=== PATIENT | female | born 1960 | race Caucasian/White ===

== ENCOUNTER 2017-12-17 21:05 | Inpatient (IN) | payer OTHER, SELFPAY ==
[2017-12-17] MEDS ORDERED: Mag-Al 1200 mg/1200 mg/30 ML UDCUP ONE (21:48)
[2017-12-17] MEDS ORDERED: Lidocaine Viscous Sol 2% 15 ml UD Cup ONE (21:48)
[2017-12-17 21:52] LABS: Bilirubin Negative (Negative); Blood, Urine Negative (Negative); Clarity CLEAR (Clear); Glucose, Urine (Dipstick) Negative (Negative); Leukocyte Trace (Negative); Nitrite Negative (Negative); Protein, Urine (Dipstick) 30 mg/dL (Neg-Trace); Specific Gravity, Urine 1.013 (1.002-1.036); pH, Urine 6.5 (5.0-9.0)
[2017-12-17 21:53] LABS: Bacteria/HPF None Seen HPF (None Seen); Hyaline Casts/LPF 0-3 HYALINE CAST LPF (0-3 Hyaline); Squamous Epithelial 0-3 HPF (0-3); WBC/HPF 0-3 HPF (0-3)
[2017-12-17 21:58] LABS: #Basophils 0.1 thou/uL (0.0-0.2); #Eosinphils 0.7 thou/uL (0.0-0.7); #Lymphocytes 2.7 thou/uL (1.20-3.40); #Monocytes 1.2 thou/uL (0.11-0.59); #Neutrophils 6.7 thou/uL (1.40-6.50); %Basophils 0.7 % (0.0-1.0); %Eosinophils 5.9 % (0.0-10.0); %Lymphocytes 23.7 % (21.0-51.0); %Monocytes 10.8 % (0.0-10.0); %Neutrophils 58.9 % (42.0-75.0); Hemoglobin 12.3 g/dL (12.0-16.0); Mean Corpuscular Hemoglobin 30.8 pg (27.0-31.0); Mean Corpuscular Volume 93.4 fL (78.0-98.0); Mean Platelet Volume 7.2 fL (7.4-10.4); Platelet Count 330 thou/uL (130-400); RBC Distribution Width 12.3 % (11.5-14.5); Red Blood Cell (RBC) Count 3.99 mill/uL (4.20-5.40); White Blood Cell (WBC) Count 11.4 thou/uL (4.8-10.8)
[2017-12-17 22:18] LABS: ALT (SGPT) 77 U/L (8-55); AST (SGOT) 162 U/L (5-34); Albumin 3.9 g/dL (3.5-5.0); Alkaline Phosphatase 129 U/L (40-150); Anion Gap 12 mmol/L (10-20); BUN (Urea Nitrogen) 15 mg/dL (9.8-20.1); Bilirubin, Total 0.8 mg/dL (0.2-1.2); Calc. Creatinine Clearance 0 mL/min (70-130); Calcium 9.4 mg/dL (7.8-10.44); Carbon Dioxide 25 mmol/L (22-29); Chloride 103 mmol/L (98-107); Estimated GFR-MDRD 58; Globulin 3.6 g/dL (2.4-3.5); Glucose 93 mg/dL (70-105); Lipase 422 U/L (8-78); Protein, Total 7.5 g/dL (6.0-8.3); Sodium 136 mmol/L (136-145)
[2017-12-17] MEDS ORDERED: Morphine 2 MG/ML SYRINGE ONE (22:40)
--- NOTE | 2017-12-17 22:46 | ULT ---
RIGHT UPPER QUADRANT ULTRASOUND: 12/17/17 INDICATION: Epigastric abdominal pain radiating to the right flank with nausea. FINDINGS: There is numerous stones within the gallbladder. There is report of a positive sonographic Rosales's s ign. No gallbladder wall thickening or pericholecystic fluid is evident. There is fatty infiltration of the liver. The pancreas is largely obscured. The right kidney measures 10.3 cm in length. No focal renal lesions or hydronephrosis is evident. IMPRESSION: 1. Cholelithiasis with report of a sonographic Rosales's sign; however, there is no pericholecyst ic fluid or gallbladder wall thickening demonstrated. Findings are equivocal by sonography for acute calculus cholecystitis. If clinically indicated, followup HIDA scan may be helpful. 2. Fatty liver. POS: [facility]
[2017-12-17] MEDS ORDERED: metroNIDAZOLE 500 MG/100 ML BAG ONE (23:15)
[2017-12-18] MEDS ORDERED: Morphine 2 MG/ML SYRINGE SLOW IVP PRN (00:33)
[2017-12-18 00:45] VITALS: BMI 37.4
[2017-12-18] MEDS: Lactated Ringer's 1,000 ML IV SCH ×2 (01:31→07:58)
[2017-12-18] MEDS ORDERED: Ondansetron PF 4 MG/2 ML Vial IVP PRN (06:02)
[2017-12-18] MEDS: Acetaminophen 1,000 MG in Premix Bag 1 BAG IVPB PRN (06:15)
[2017-12-18] MEDS ORDERED: Scopolamine 1.5 mg/72 hour Patch TOP SCH (06:30)
[2017-12-18] MEDS ORDERED: metroNIDAZOLE 500 MG in Premix Bag 1 BAG IVPB SCH (08:00)
--- NOTE | 2017-12-18 08:03 | HP ---
HISTORY OF PRESENT ILLNESS: Ms. Tammie Nguyen is a 57-year-old female who has had intermittent right u pper quadrant epigastric pain for several months. She was prescribed ranitidine. She reports having an ultrasound and it is difficult from her history to tell whether there is any abnormality at that time, although it sounds like that there was, she is not able to tell me; however, whether she had st ones or not, but they did treat her with ranitidine. She [facility] and has had right upper quadrant pain. Ultrasound is positive for sonographic Rosales sign. The re has been no mention of biliary dilatation, although her lipase was slightly elevated. Her bilirub in, alkaline phosphatase was normal, although AST and ALT were slightly elevated. She is morbidly ob lionel and does have a fatty liver. Plan at this time is for a laparoscopic video cholecystectomy and c holangiogram, so I think the risk of choledocholithiasis is very small. ALLERGIES: PENICILLIN. TOBACCO: None. ALCOHOL: None. MEDICATIONS: Ranitidine 150 mg at bedtime, multivitamins daily, metoprolol 25 mg daily, lisinopril 2 5 mg daily, aspirin 81 mg daily. PAST SURGICAL HISTORY: Noncontributory. PAST MEDICAL HISTORY: Hypertension. REVIEW OF SYSTEMS: [place] noncontributory. She reports a negative cardiac stress test years ago. She is asymptomatic from a cardiac standpoint without cardiac symptomatology. PHYSICAL EXAMINATION: GENERAL: 5 foot 4 inches, 218 pounds, 37 BMI. VITAL SIGNS: 98.2, 72, 20, 165/95. HEENT: Unremarkable. LUNGS: Clear to auscultation. CARDIAC: Regular rate and rhythm without murmur or gallop. ABDOMEN: Soft, obese. Tenderness in right upper quadrant with positive Rosales sign. EXTREMITIES: No ankle edema, palpable pedal pulses. SKIN: Nonjaundiced. Sclerae nonicterus. LABORATORY DATA: Sodium 136, potassium 4.0, BUN 15, creatinine 0.98, GFR 58, bilirubin 0.8, AST 162, ALT 177, alkaline phosphatase normal at 129, lipase 422. Her white count is 11, hemoglobin 12. ASSESSMENT AND PLAN: Acute cholecystitis and cholelithiasis. We recommend laparoscopic video cholec ystectomy and cholangiogram. Risk of infection, bleeding, visceral and biliary injury were discussed , she consents. Questions were answered.
[2017-12-18] MEDS: Ketorolac Tromethamine 30 MG/ML VIAL IVP PRN (09:24)
[2017-12-18] MEDS ORDERED: Glycopyrrolate 0.2 MG/ML 5 ML SYRINGE ONE (11:32)
[2017-12-18] MEDS ORDERED: Metoprolol Tartrate 5 MG/5 ML VIAL ONE (11:32)
[2017-12-18] MEDS ORDERED: Ketorolac Tromethamine 30 MG/ML VIAL ONE (11:32)
[2017-12-18] MEDS ORDERED: Dexamethasone 20 MG/5 ML VIAL ONE (11:32)
[2017-12-18] MEDS ORDERED: PROPOFOL 200 MG/20 ML VIAL ONE (11:32)
[2017-12-18] MEDS ORDERED: Succinylcholine Chloride 20 MG/ML 10 ml SYRINGE FS ONE (11:32)
[2017-12-18] MEDS ORDERED: Ondansetron PF 4 MG/2 ML Vial ONE (11:32)
[2017-12-18] MEDS ORDERED: Fentanyl 100 MCG/2 ML VIAL ONE (12:33)
[2017-12-18] MEDS ORDERED: Bupivacaine HCl 0.5%/Epinephrine 1:200,000/PF 30 ml Vial ONE (12:33)
[2017-12-18] MEDS ORDERED: Iothalamate Meglumine 60% 50 ML VIAL FS ONE (12:33)
[2017-12-18] MEDS ORDERED: Levofloxacin 500 mg/D5W 100 ml Premix Bag ONE (12:49)
[2017-12-18] MEDS ORDERED: Promethazine HCl 25 MG/ML VIAL IM PRN (13:55)
[2017-12-18] MEDS ORDERED: Ondansetron HCl/PF 4 MG/2 ML Vial IVP PRN (13:55)
[2017-12-18] MEDS ORDERED: Promethazine HCl 25 MG/ML VIAL SLOW IVP PRN (13:55)
[2017-12-18] MEDS ORDERED: traMADol HCl 50 MG TAB PO PRN ×2 (14:15)
[2017-12-18] MEDS ORDERED: Acetaminophen 500 MG TAB PO PRN (14:15)
[2017-12-18] MEDS ORDERED: Ibuprofen 600 MG TAB PO PRN (14:15)
[2017-12-18] MEDS ORDERED: Ondansetron ODT 4 MG TAB PO PRN (14:20)
[2017-12-18] MEDS ORDERED: Ondansetron ODT 8 MG TAB PO PRN (14:20)
--- NOTE | 2017-12-18 15:09 | RAD ---
INTRAOPERATIVE CHOLANGIOGRAM FLUOROSCOPY: Date: 12/18/17 HISTORY: Cholecystitis. FINDINGS/IMPRESSION: Intraoperative fluoroscopy was provided for cholangiogram as performed by Dr. Davey. Spot fluoroscop ic images show contrast opacification of a nondilated biliary system. Contrast extends into the duode num. Fluoro Time: 11 seconds. POS: [facility]
--- NOTE | 2017-12-18 15:53 | OP ---
PREOPERATIVE DIAGNOSES: Chronic cholecystitis, cholelithiasis, elevated transaminases. Normal bilir ubin, alkaline phosphatase, nondilated bile duct, and minimally elevated lipase. POSTOPERATIVE DIAGNOSES: Chronic cholecystitis, cholelithiasis, choledocholithiasis. PROCEDURE: Laparoscopic video cholecystectomy, positive cholangiogram. FINDINGS: Nondilated bile duct without obvious filling defects, but distal bile duct had a meniscus and did not empty into the duodenum despite glucagon administration. SURGEON: Oumar Davey M.D. ANESTHESIA: General. Local 0.5% Marcaine with epinephrine. PLAN: Consult Dr. Phillip Lee for ERCP, Thursday, tomorrow. PROCEDURE IN DETAIL: Patient was taken to the operating room where under general anesthesia, abdomen was prepared with ChloraPrep, draped in usual fashion. Local anesthetic infiltrated into the skin a nd subcutaneous tissue about the operative sites. Infraumbilical incision made. Pneumoperitoneum to 15 mmHg obtained with a Veress needle, replacing it with a 5 port and laparoscope inserted. Right s ubxiphoid incision made and 11 port placed. Right subcostal incision made in mid clavicular anterior axillary lines and 5 ports placed. Liver appeared to be normal. Fundus of gallbladder grasped at t he cephalad dissected laterally. There was abundant fatty tissue. Cystic artery and duct diss ected free. Cystic artery double clipped proximally, divided. Cystic duct dissected free and a clip was placed. An opening was made in the cystic duct and contents milked retrograde. Cholangio cath inserted and cholangiogram was obtained using fluoroscopy revealing a failure of the nondilated bile duct that empty into the duodenum despite glucagon administration by Anesthesia. Repeat cholang iograms obtained. Still, there was no emptying. There seemed to be a meniscus sign on the distal bi le duct. Cholangiocath removed. Cystic duct doubly clipped. Cystic artery and duct divided and gal lbladder dissected free from liver bed obtaining good hemostasis prior to division of final peritonea l attachments. Gallbladder and contents removed, multiple small stones. Good hemostasis noted in th e liver bed. Irrigant and pneumoperitoneum evacuated. All instruments removed. All skin incisions approximated with interrupted subdermal 4-0 Monocryl and DermaGlue applied.
[2017-12-18] MEDS ORDERED: Lisinopril 20 MG TAB PO SCH (20:30)
[2017-12-18] MEDS ORDERED: Metoprolol Tartrate 25 MG TAB PO SCH (20:30)
[2017-12-18] MEDS ORDERED: Enoxaparin Sodium 40 MG/0.4 ML SYRINGE SC SCH (21:00)
--- NOTE | 2017-12-19 01:15 | CON ---
DATE OF CONSULTATION: 12/18/2017 GASTROENTEROLOGY CONSULTATION CHIEF COMPLAINT: Abdominal pain. HISTORY OF PRESENT ILLNESS: Ms. Nguyen is a 57-year-old woman, who was admitted through the emergency room with gallstone pancreatitis. She complains of epigastric aching pain that started on Thursday. The pain continued and she took ranitidine for this without help. She ultimately came to the emerge ncy room. An ultrasound was performed, which showed cholelithiasis with right upper quadrant tendern ess. Her lipase was elevated greater than 3 times upper limit of normal. Dr. Davey performed lapar oscopic cholecystectomy with intraoperative cholangiogram that showed no emptying of contrast from th e bile duct by cholangiogram and the meniscus at the distal bile duct. She has had no nausea, vomiti ng, diarrhea, constipation or blood in the stool. I performed a screening colonoscopy for her back i n 05/2010, which was negative; however, the colon prep quality was only fair. Followup colonoscopy w as recommended for 5 years; however, she has not followed up for that. PAST MEDICAL HISTORY: Hypertension. PAST SURGICAL HISTORY: Negative other than cholecystectomy today. FAMILY HISTORY: Negative for GI malignancy. SOCIAL HISTORY: No alcohol, tobacco or drugs. ALLERGIES: PENICILLIN. MEDICATIONS: Prior to admission, ranitidine, metoprolol, lisinopril, aspirin, and potassium. REVIEW OF SYSTEMS: Negative x10 systems reviewed except as stated in history of present illness. PHYSICAL EXAMINATION: VITAL SIGNS: Temperature 97.4, pulse 67, blood pressure 166/98. GENERAL: She is in no acute distress. She is alert and oriented x3. HEENT: Eyes have no scleral icterus. Oropharynx is clear, without lesions. NECK: No cervical or supraclavicular lymphadenopathy. LUNGS: Clear to auscultation bilaterally. HEART: Regular rate and rhythm without murmur. ABDOMEN: Soft. Mild tenderness in the epigastric region without guarding. Bowel sounds are present . EXTREMITIES: No lower extremity edema. NEUROLOGIC: Cranial nerves are grossly intact. LABORATORY DATA: White blood cell count 11.4, hemoglobin 12.3, platelets 330. Creatinine is 0.98, b ilirubin 0.8, AST 162, ALT 77, alkaline phosphatase 129, lipase was 422, albumin 3.9. IMPRESSION: Gallstone pancreatitis, status post laparoscopic cholecystectomy today with intraoperati ve cholangiogram showing choledocholithiasis. RECOMMENDATIONS: 1. Check trend of the liver tests and lipase in the morning. 2. ERCP tomorrow morning.
[2017-12-19 04:25] LABS: #Lymphocytes 1.5 thou/uL (1.20-3.40); #Monocytes 0.8 thou/uL (0.11-0.59); #Neutrophils 9.8 thou/uL (1.40-6.50); %Basophils 0.1 % (0.0-1.0); %Eosinophils 0.3 % (0.0-10.0); %Lymphocytes 12.3 % (21.0-51.0); %Monocytes 6.3 % (0.0-10.0); %Neutrophils 81.1 % (42.0-75.0); Hemoglobin 11.6 g/dL (12.0-16.0); Mean Corpuscular HGB CONC 32.2 g/dL (32.0-36.0); Mean Corpuscular Hemoglobin 30.4 pg (27.0-31.0); Mean Corpuscular Volume 94.5 fL (78.0-98.0); Mean Platelet Volume 7.5 fL (7.4-10.4); Platelet Count 318 thou/uL (130-400); RBC Distribution Width 12.3 % (11.5-14.5); Red Blood Cell (RBC) Count 3.81 mill/uL (4.20-5.40); White Blood Cell (WBC) Count 12.1 thou/uL (4.8-10.8)
[2017-12-19 05:05] LABS: ALT (SGPT) 124 U/L (8-55); AST (SGOT) 105 U/L (5-34); Albumin 3.5 g/dL (3.5-5.0); Alkaline Phosphatase 117 U/L (40-150); Anion Gap 8 mmol/L (10-20); BUN (Urea Nitrogen) 13 mg/dL (9.8-20.1); Bilirubin, Total 0.7 mg/dL (0.2-1.2); Calc. Creatinine Clearance 94 mL/min (70-130); Calcium 9.3 mg/dL (7.8-10.44); Carbon Dioxide 29 mmol/L (22-29); Chloride 102 mmol/L (98-107); Estimated GFR-MDRD 56; Globulin 3.4 g/dL (2.4-3.5); Glucose 119 mg/dL (70-105); Lipase 30 U/L (8-78); Potassium 4.4 mmol/L (3.5-5.1); Protein, Total 6.9 g/dL (6.0-8.3); Sodium 135 mmol/L (136-145)
[2017-12-19] MEDS: Acetaminophen 1,000 MG in Premix Bag 1 BAG IVPB PRN (05:54)
[2017-12-19] MEDS: Ketorolac Tromethamine 30 MG/ML VIAL IVP PRN (05:54)
[2017-12-19] MEDS ORDERED: Lactated Ringer's 1,000 ML IV SCH (08:00)
[2017-12-19] MEDS ORDERED: Ondansetron HCl/PF 4 MG/2 ML Vial IVP PRN (08:57)
[2017-12-19] MEDS ORDERED: Aspirin 81 mg Enteric Coated Tablet PO SCH (09:00)
[2017-12-19] MEDS ORDERED: Metoprolol Tartrate 25 MG TAB PO SCH (09:00)
[2017-12-19] MEDS ORDERED: Polyethylene Glycol 3350 17 GM Packet PO SCH (09:00)
[2017-12-19] MEDS ORDERED: Lisinopril 20 MG TAB PO SCH (09:00)
[2017-12-19] MEDS ORDERED: Iothalamate Meglumine 60% 50 ML VIAL FS ONE (09:26)
[2017-12-19] MEDS ORDERED: B & O ONE (09:31)
[2017-12-19] MEDS ORDERED: Indomethacin 50 MG SUPP ONE (09:31)
[2017-12-19] MEDS ORDERED: Ondansetron ODT 4 MG TAB ONE (09:35)
[2017-12-19] MEDS ORDERED: Fentanyl 100 MCG/2 ML VIAL ONE ×2 (09:35→11:41)
[2017-12-19] MEDS ORDERED: Levofloxacin 500 mg/D5W 100 ml Premix Bag ONE (09:38)
[2017-12-19] MEDS ORDERED: Lidocaine 1% PF 5 ML VIAL ONE (10:06)
[2017-12-19] MEDS ORDERED: Glycopyrrolate 0.2 MG/ML 5 ML SYRINGE ONE (10:06)
[2017-12-19] MEDS ORDERED: PROPOFOL 200 MG/20 ML VIAL ONE (10:06)
[2017-12-19] MEDS ORDERED: Metoclopramide HCl 10 MG/2 ML VIAL ONE (11:26)
--- NOTE | 2017-12-19 12:00 | RAD ---
ERCP: DATE: 12/19/17 PROVIDED CLINICAL HISTORY: Endoscopy. FINDINGS/IMPRESSION: Comparison made with the study dated 12/18/17. Opacification of the biliary tree is noted. There is lack of filling of the major left-sided biliary radicles. A linear radiodensity is noted in this location on the second provided image. Correlate wit h real-time findings. POS: [facility]
[2017-12-19] MEDS ORDERED: METOCLOPRAMIDE HCL IVPB SCH (12:15)
[2017-12-19] MEDS ORDERED: SODIUM CHLORIDE 0.9% IVPB SCH (12:15)
--- NOTE | 2017-12-19 12:52 | OP ---
DATE OF PROCEDURE: 12/19/2017 PROCEDURE: Endoscopic retrograde cholangiopancreatography with sphincterotomy. PREOPERATIVE DIAGNOSES: Choledocholithiasis and gallstone pancreatitis. OPERATIVE NOTE: Informed consent was obtained from the patient. She was sedated with general anesth esia and placed in the prone position. The side-viewing endoscope was advanced easily to the second portion of the duodenum where the ampulla was identified and appeared unremarkable with good bile jenny w. The ampulla was cannulated with a sphincterotome with a guidewire. The pancreatic duct was acces sed briefly once with the wire and then the cannula was repositioned and the common bile duct was alena ectively cannulated easily on the next attempt. Cholangiogram was performed and revealed a 6-mm comm on bile duct and normal intra- and extrahepatic ducts. No obvious filling defect was seen. A comple te sphincterotomy was performed. Balloon sweep with a 9-mm balloon was performed and confirmed the d uct to be clear with occlusion cholangiogram. The balloon passed easily through the sphincterotomy. IMPRESSION: 1. Normal cholangiogram with sphincterotomy performed and balloon sweep of the bile duct with occlus ion cholangiogram confirms the duct to be clear. 2. She likely has passed the stone out. RECOMMENDATIONS: 1. She can advance to a low-fat diet, and if she tolerates this well, [facility] 2. I will sign off. Please call if GI can be of assistance.
[2017-12-19 13:04] VITALS: TEMP 97.2
[2017-12-19 17:40] VITALS: BP 162/89
--- NOTE | 2017-12-19 18:35 | DIS ---
DATE OF ADMISSION: 12/17/2017 DATE OF DISCHARGE: 12/19/2017 ADMITTING PHYSICIAN: Dr. Davey. DISCHARGING PHYSICIAN: Dr. Salgado. CONSULTANTS: Dr. Phillip Lee with Gastroenterology. ADMITTING DIAGNOSIS: Gallstone pancreatitis. DISCHARGE DIAGNOSIS: Resolved gallstone pancreatitis. OPERATIONS AND PROCEDURES: 1. Laparoscopic cholecystectomy with intraoperative cholangiogram on 12/18/2017 by Petar. 2. ERCP with sphincterotomy by Dr. Phillip Lee today. HISTORY AND HOSPITAL COURSE: A 57-year-old woman presented with abdominal pain. Clinical and radiog raphic examination was consistent with acute gallstone pancreatitis. Patient underwent laparoscopic cholecystectomy with intraoperative cholangiogram yesterday. She was referred to Gastroenterology fo r ERCP today. ERCP revealed no common bile ductal stones. It has been several hours since the ERCP. Patient reports adequate pain control. She is tolerating diet. She is having normal bowel and uri nary function. DISCHARGE INSTRUCTIONS: She will be discharged home with the following instructions. 1. She follows up with Dr. Davey in 2 weeks. 2. She is encouraged to ambulate daily to avoid complications of venous thromboembolism. 3. She may resume any prehospital medications as prescribed by her primary care physician. Addition ally, she is given a prescription for tramadol 100 mg #20 to be taken 1 p.o. q.6 hours p.r.n. pain, a lternating this with Tylenol 1000 mg p.o. q.6 hours p.r.n. pain. 4. The patient is to call Dr. Davey with any questions or problems including exacerbation of abdomi nal pain, fever in excess of 101 degrees Fahrenheit, intolerance to oral intake or any abnormal drain age from incisional wounds. 5. She may shower and avoid soaking herself in the bathtub or swimming until she has been released b kallie Davey. She needs to limit her weight lifting to 20 pounds until she has been released by Dr. Davey. Above instructions given to the patient, who indicates understanding of the information given. I hav e answered questions.
== END 2017-12-19 17:15 | disposition home or self-care (01) | DRG 417 ==
LOC: ERS 21:05 → SURG A 23:00
PROVIDERS: ADMIT Specialist; ATTEND Specialist
PROC: 0FT44ZZ Resection of Gallbladder, Percutaneous Endoscopic Approach (ICD-10-PCS; principal; 2017-12-18)
PROC: BF101ZZ Fluoroscopy of Bile Ducts using Low Osmolar Contrast (ICD-10-PCS; 2017-12-18)
PROC: 0F798ZZ Dilation of Common Bile Duct, Via Natural or Artificial Opening Endoscopic (ICD-10-PCS; 2017-12-19)
PROC: BF101ZZ Fluoroscopy of Bile Ducts using Low Osmolar Contrast (ICD-10-PCS; 2017-12-19)
DX: K80.12 Calculus of gallbladder with acute and chronic cholecystitis without obstruction (principal); K85.10 Biliary acute pancreatitis without necrosis or infection; K80.40 Calculus of bile duct with cholecystitis, unspecified, without obstruction; E66.01 Morbid (severe) obesity due to excess calories; K76.0 Fatty (change of) liver, not elsewhere classified; Z88.0 Allergy status to penicillin; I10 Essential (primary) hypertension; Z68.37 Body mass index [BMI] 37.0-37.9, adult
CPT/HCPCS: 36415; 47532; 74330; 76705; 80053; 81001; 83690; 85025; 88304; 93005; 96365; J0131; J0670; J0744; J1610; J1650; J1885; J1956; J2001; J2270; J2704; J2765; J3010; J7050; Q0162; Q9961